=== PATIENT | male | born 1965 | race Caucasian/White ===

== ENCOUNTER 2017-09-01 11:15 | Inpatient (IN) | payer OTHER ==
[~2017-09-01 11:15] MED LIST: Acetaminophen/oxyCODONE 325-5 MG Tab PO PRN; Bisacodyl 5 MG Tab PO PRN; Cyclobenzaprine 10 MG Tab PO PRN; Lidocaine 1%/Sod Bicarbonate in NS 8.4% 1 ML Syringe IV PRN; Magnesium Hydroxide 400 MG/5 ML Susp 30 ML Cup PO PRN; Morphine 2 MG/ML Syringe IVPUSH PRN; Naloxone 0.4 MG/ML SDV IVPUSH PRN; Sennosides 8.6 MG Tab PO PRN; Sodium Chloride 0.9% 10 ML Syringe FLUSH PRN; diphenhydrAMINE 50 MG/ML SDV IVPUSH PRN
[2017-09-01] MEDS: Lactated Ringers 1,000 ML IV SCH ×2 (11:45→16:24)
[2017-09-01] MEDS ORDERED: ceFAZolin 1 GM Vial ONE (11:48)
--- NOTE | 2017-09-01 12:14 | PCM.PREANE ---
Preanesthetic Assessment - Anesthesia/Transfusion/Family Hx Anesthesia History: Prior Anesthesia Without Reaction Family History of Anesthesia Reaction: No Transfusion History: No Prior Transfusion(s) - Review of Systems General: No Symptoms Pulmonary: No Symptoms Cardiovascular: Other (EKG shows nsr with incomplete RBBB) Gastrointestinal: Other (GERD, Barretts Esophagus, well controlled on meds) Neurological: No Symptoms Other: Reports: None - Physical Assessment NPO Status Date: 08/31/17 NPO Status Time: 21:30 Pulse: 76 O2 Sat by Pulse Oximetry: 98 Respiratory Rate: 16 Blood Pressure: 130/93 Vital Signs: Last Vital Signs Temp 36.8 C 09/01/17 11:30 Pulse 76 09/01/17 11:30 Resp 16 09/01/17 11:30 BP 130/93 H 09/01/17 11:30 Pulse Ox 98 09/01/17 11:30 Height: 1.8 m Weight: 93.44 kg ASA Class: 2 Mental Status: Alert & Oriented x3 Airway Class: Mallampati = 2 Dentition: Reports: Normal Dentition Thyro-Mental Finger Breadths: 3 Mouth Opening Finger Breadths: 3 ROM/Head Extension: Full Lungs: Clear to Auscultation, Normal Respiratory Effort Cardiovascular: Regular Rate, Regular Rhythm - Allergies Allergies/Adverse Reactions: Allergies Allergy/AdvReac Type Severity Reaction Status Date / Time cat dander Allergy Sneezing Verified 08/31/17 11:21 - Blood Blood Available: No Product(s) Available: None - Anesthesia Plan Pre-Op Medication Ordered: None - Acknowledgements Anesthesia Type Planned: Spinal Pt an Appropriate Candidate for the Planned Anesthesia: Yes Alternatives and Risks of Anesthesia Discussed w Pt/Guardian: Yes Pt/Guardian Understands and Agrees with Anesthesia Plan: Yes PreAnesthesia Questionnaire HEENT History: Reports: Impaired Vision Other HEENT History: wears eyeglasses Cardiovascular History: Reports: High Cholesterol, Hypertension Other Cardiovascular History: controlled with fish oil Respiratory History: Reports: None Gastrointestinal History: Reports: GERD, Other (See Below) Other Gastrointestinal History: richards's esophagus Genitourinary History: Reports: None 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 Musculoskeletal History: Reports: None Neurological History: Reports: None Psychiatric History: Reports: None Endocrine/Metabolic History: Reports: None Hematologic History: Reports: None Immunologic History: Reports: None Oncologic (Cancer) History: Reports: None Dermatologic History: Reports: Other (See Below) Other Dermatologic History: sebaceous cyst, excision of lymph nodes - Infectious Disease History Infectious Disease History: Reports: Chicken Pox, Measles - Past Surgical History Head Surgeries/Procedures: Reports: None Cardiovascular Surgical History: Reports: None Respiratory Surgical History: Reports: None GI Surgical History: Reports: Appendectomy, Cholecystectomy, Colonoscopy, EGD Female Surgical History: Reports: None Male Surgical History: Reports: None Endocrine Surgical History: Reports: None Neurological Surgical History: Reports: None Musculoskeletal Surgical History: Reports: None Oncologic Surgical History: Reports: None Dermatological Surgical History: Reports: None - SUBSTANCE USE Smoking Status *Q: Former Smoker Second Hand Smoke Exposure: No Days Per Week of Alcohol Use: 0 Number of Drinks Per Day: 1 Total Drinks Per Week: 0 Recreational Drug Use History: No - HOME MEDS Home Medications: Home Meds Omeprazole [priLOSEC OTC] 20 mg PO DAILY 03/18/14 [History] Colestipol HCl 1 gm PO TID PRN 08/31/17 [History] Dicyclomine [Bentyl] 10 mg PO Q48H 08/31/17 [History] Meloxicam [Meloxicam] 15 mg PO DAILY 08/31/17 [History] Pravastatin Sodium [Pravastatin (Pravachol)] 40 mg PO DAILY 08/31/17 [History] - CURRENT (IN HOUSE) MEDS Current Meds: Current Medications Aspirin (Ecotrin) 325 mg PO BID JESUS Bisacodyl (Dulcolax) 5 mg PO DAILY PRN PRN Reason: Constipation Cyclobenzaprine HCl (Flexeril) 10 mg PO TID PRN PRN Reason: Spasms Diphenhydramine HCl (Benadryl) 25 mg IVPUSH Q4H PRN PRN Reason: Nausea Docusate Sodium (Colace) 100 mg PO BID JESUS Famotidine (Pepcid) 20 mg PO Q12H JESUS Lactated Ringer's (Ringers, Lactated) 1,000 mls @ 125 mls/hr IV ASDIRECTED [facility] Stop: 09/01/17 18:00 Last Admin: 09/01/17 11:45 Dose: 125 mls/hr Cefazolin Sodium/Dextrose 2 gm (/ Premix) 50 mls @ 100 mls/hr IV Q8H [facility] Stop: 09/01/17 23:29 Ketorolac Tromethamine (Toradol) 15 mg IVPUSH Q6H PRN PRN Reason: Pain Lidocaine/Sodium Bicarbonate (Buffered Lidocaine 1% In Ns 8.4%) 0.25 ml IV ONETIME PRN PRN Reason: Prior to IV Start Stop: 09/01/17 18:00 Last Admin: 09/01/17 11:44 Dose: 0.25 ml Magnesium Hydroxide (Milk Of Magnesia) 30 ml PO BID PRN PRN Reason: Constipation Morphine Sulfate (Morphine) 2 mg IVPUSH Q2H PRN PRN Reason: Breakthrough Pain Naloxone HCl (Narcan) 0.1 mg IVPUSH Q5M PRN PRN Reason: Oversedation Ondansetron HCl (Zofran) 4 mg IVPUSH Q6H PRN PRN Reason: Nausea/Vomiting Oxycodone/Acetaminophen (Percocet 325-5 Mg) 1 - 2 tab PO Q4H PRN PRN Reason: Pain Senna (Senna) 8.6 mg PO BID PRN PRN Reason: Constipation Sodium Chloride (Saline Flush) 10 ml FLUSH ASDIRECTED PRN PRN Reason: Keep Vein Open Stop: 09/01/17 18:00 Discontinued Medications Bupivacaine HCl (Marcaine 0.25%) Confirm Administered Dose 30 ml .ROUTE .STK- MED ONE Stop: 09/01/17 11:49 Cefazolin Sodium (Ancef) Confirm Administered Dose 2 gm .ROUTE .STK-MED ONE Stop: 09/01/17 11:49 Morphine Sulfate 8 mg/Epinephrine HCl 0.3 mg/Cefuroxime Sodium 750 mg/Ketorolac Tromethamine 30 mg/Sodium Chloride 27.9 ml 0 mg .XX ONETIME ONE Stop: 09/01/17 06:52 Iodine (Iodine 2% Mild Tincture) Confirm Administered Dose 30 ml .ROUTE .STK- MED ONE Stop: 09/01/17 11:49 Tranexamic Acid (Cyklokapron) Confirm Administered Dose 1,000 mg .ROUTE .STK- MED ONE Stop: 09/01/17 11:49 Vancomycin HCl (Vancomycin) Confirm Administered Dose 1 gm .ROUTE .STK-MED ONE Stop: 09/01/17 11:49
[2017-09-01] MEDS ORDERED: Ondansetron 4 MG/2 ML SDV ONE (12:45)
[2017-09-01] MEDS ORDERED: Morphine PF 1 MG/ML Amp ONE (12:45)
[2017-09-01] MEDS ORDERED: Propofol 200 MG/20 ML SDV ONE ×4 (12:46→15:06)
[2017-09-01] MEDS ORDERED: Midazolam 1 MG/ML 2 ML SDV ONE (12:46)
[2017-09-01] MEDS ORDERED: Lidocaine 1% 4 ML ONE (12:46)
[2017-09-01] MEDS ORDERED: fentaNYL 100 MCG/2 ML SDV ONE (12:46)
[2017-09-01] MEDS ORDERED: ePHEDrine/Normal Saline 25 MG/5 ML Syringe ONE (14:05)
[2017-09-01] MEDS: ceFAZolin 1 GM Vial ONE ×2 (14:06→14:50)
[2017-09-01] MEDS: Bupivacaine 0.25% 30 ML SDV ONE ×2 (14:07→14:55)
[2017-09-01] MEDS: Iodine/Sodium Iodide 2% Tincture 30 ML Bottle ONE ×2 (14:08→14:47)
[2017-09-01] MEDS: Morphine 8 MG, EPINEPHrine 0.3 MG, Cefuroxime 750 MG, Ketorolac 30 MG, Sodium Chloride ... ONE ×10 (14:09→14:54)
[2017-09-01] MEDS: Vancomycin 1 GM SDV ONE ×2 (14:10→15:00)
[2017-09-01] MEDS ORDERED: COLESTIPOL HCL 1 GM PO PRN (15:25)
[2017-09-01] MEDS ORDERED: Dicyclomine 10 MG Cap PO SCH (15:30)
[2017-09-01] MEDS ORDERED: fentaNYL 250 MCG/5 ML SDV IVPUSH PRN (15:36)
--- NOTE | 2017-09-01 15:38 | PCM.POSTAN ---
POST ANESTHESIA ASSESSMENT - MENTAL STATUS Mental Status: Alert, Oriented - VITAL SIGNS Pulse Rate: 79 SaO2: 97 Resp Rate: 14 Blood Pressure: 89/58 Temperature: 36.4 C - CARDIOVASCULAR CV Status: Pulse Rate WNL, Blood Pressure Stable - GASTROINTESTINAL GI Status: No Symptoms - PAIN Pain Score: 0 - POST OP HYDRATION Hydration Status: Adequate & Stable - OBSERVATIONS Free Text/Narrative:: no anesthesia complications noted
--- NOTE | 2017-09-01 16:30 | CR ---
Pelvis and right hip: AP view of the pelvis was obtained as well as lateral view of the right hip. Comparison: No prior study. Right hip prosthesis is seen. Small amount of soft tissue air is noted compatible with recent surgery. Joint space within the left hip is maintained. Right sacroiliac and left sacroiliac joints are felt to be within normal limits. No fracture or other bony abnormality is seen. Impression: 1. Satisfactory appearance of recently placed right hip prosthesis. Diagnostic code #2
[2017-09-01] MEDS: Ondansetron 4 MG/2 ML SDV IVPUSH PRN ×2 (17:39→23:12)
--- NOTE | 2017-09-01 20:05 | PCM.CONS ---
H&P History of Present Illness - General Date of Service: 09/01/17 Admit Problem/Dx: Admission Diagnosis/Problem Admission Diagnosis/Problem Osteoarthritis of hip Source of Information: Patient, Old Records, RN, RN Notes Reviewed, Other ( Surgical notes) History Limitations: Reports: No Limitations - History of Present Illness Initial Comments - Free Text/Narative: Matthew Warner is a 52 yo male patient of Dr. Urbina who is post-operative day 0 of right LORENZO. Hospital medicine was consulted for post-operative medical care. At this time he is resting in bed. Pain is absent. He denies any chest pain, shortness of breath, or palpitations. He does report some nausea and vomiting. He carries a history of: Impaired vision, HLD, HTN, GERD, Richards's esophagus. He is a former smoker. He is a full code. Is primary care provider is Dr. Pond at [facility] in [place]. Right Hip Pain Score (Numeric/FACES): 7 - Related Data Allergies/Adverse Reactions: Allergies Allergy/AdvReac Type Severity Reaction Status Date / Time cat dander Allergy Sneezing Verified 08/31/17 11:21 Home Medications: Home Meds Omeprazole [priLOSEC OTC] 20 mg PO DAILY 03/18/14 [History] Colestipol HCl 1 gm PO TID PRN 08/31/17 [History] Dicyclomine [Bentyl] 10 mg PO Q48H 08/31/17 [History] Meloxicam [Meloxicam] 15 mg PO DAILY 08/31/17 [History] Pravastatin Sodium [Pravastatin (Pravachol)] 40 mg PO DAILY 08/31/17 [History] Past Medical History HEENT History: Reports: Impaired Vision Other HEENT History: wears eyeglasses Cardiovascular History: Reports: High Cholesterol, Hypertension Other Cardiovascular History: controlled with fish oil Respiratory History: Reports: None Gastrointestinal History: Reports: GERD, Other (See Below) Other Gastrointestinal History: richards's esophagus Genitourinary History: Reports: None 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 Musculoskeletal History: Reports: None Neurological History: Reports: None Psychiatric History: Reports: None Endocrine/Metabolic History: Reports: None Hematologic History: Reports: None Immunologic History: Reports: None Oncologic (Cancer) History: Reports: None Dermatologic History: Reports: Other (See Below) Other Dermatologic History: sebaceous cyst, excision of lymph nodes - Infectious Disease History Infectious Disease History: Reports: Chicken Pox, Measles - Past Surgical History Head Surgeries/Procedures: Reports: None Cardiovascular Surgical History: Reports: None Respiratory Surgical History: Reports: None GI Surgical History: Reports: Appendectomy, Cholecystectomy, Colonoscopy, EGD Female Surgical History: Reports: None Male Surgical History: Reports: None Endocrine Surgical History: Reports: None Neurological Surgical History: Reports: None Musculoskeletal Surgical History: Reports: None Oncologic Surgical History: Reports: None Dermatological Surgical History: Reports: None Social & Family History - Tobacco Use Smoking Status *Q: Former Smoker Used Tobacco, but Quit: Yes Month Tobacco Last Used: 2012 Second Hand Smoke Exposure: No - Caffeine Use Caffeine Use: Reports: Coffee - Alcohol Use Days Per Week of Alcohol Use: 0 Number of Drinks Per Day: 1 Total Drinks Per Week: 0 - Recreational Drug Use Recreational Drug Use: No Drug Use in Last 12 Months: No H&P Review of Systems - Review of Systems: Review Of Systems: See Below General: Reports: No Symptoms. Denies: Fever, Chills, Malaise, Weakness, Fatigue HEENT: Reports: No Symptoms. Denies: Dysphasia, Ear Pain, Eye Pain, Headaches, Sore Throat, Vertigo Pulmonary: Reports: No Symptoms. Denies: Shortness of Breath, Wheezing, Pleuritic Chest Pain, Cough, Sputum Cardiovascular: Reports: No Symptoms. Denies: Chest Pain, Palpitations, Dyspnea on Exertion, Lightheadedness Gastrointestinal: Reports: Nausea, Vomiting. Denies: Abdominal Pain, Constipation, Diarrhea Genitourinary: Reports: No Symptoms Musculoskeletal: Reports: Joint Pain (Bilateral knee ) Skin: Reports: No Symptoms Psychiatric: Reports: No Symptoms Neurological: Reports: No Symptoms Hematologic/Lymphatic: Reports: No Symptoms Immunologic: Reports: No Symptoms Exam - Exam Exam: See Below - Vital Signs Vital Signs: Last Vital Signs Temp 97.2 F 09/01/17 16:30 Pulse 68 09/01/17 18:46 Resp 14 09/01/17 16:46 BP 121/61 09/01/17 18:46 Pulse Ox 93 L 09/01/17 18:46 Weight: 206 lb - Exam Quality Assessment: Supplemental Oxygen, Urinary Catheter, DVT Prophylaxis General: Alert, Oriented, Cooperative, Mild Distress HEENT: Conjunctiva Clear, EACs Clear, EOMI, Hearing Intact, Mucosa Moist & [place] , Nares Patent, Normal Nasal Septum, Posterior Pharynx Clear, PERRLA Neck: Supple, Trachea Midline. No: JVD, Thyromegaly Lungs: Clear to Auscultation, Normal Respiratory Effort Cardiovascular: Regular Rate, Regular Rhythm GI/Abdominal Exam: Normal Bowel Sounds, Soft, Non-Tender, No Organomegaly, No Distention, No Abnormal Bruit, No Mass, Pelvis Stable (Male) Exam: Deferred Rectal (Males) Exam: Deferred Back Exam: Normal Inspection, Full Range of Motion Extremities: No Pedal Edema, Normal Capillary Refill, Other (CHRISTINA bandage in place on right leg. Bandage is dry and intact. Leg wedge in place. Cooling pack in place ) Peripheral Pulses: 2+: Radial (L), Radial (R), Posterior Tibial (L), Posterior Tibial (R), Dorsalis Pedis (L), Dorsalis Pedis (R) Skin: Warm, Dry, Intact Neurological: Cranial Nerves Intact (Grossly) Neuro Extensive - Mental Status: Alert, Oriented x3, Normal Mood/Affect, Normal Cognition, Memory Intact Neuro Extensive - Motor, Sensory, Reflexes: CN II-XII Intact (Grossly) Psychiatric: Alert, Normal Affect, Normal Mood - Patient Data Lab Results Last 24 hrs: Laboratory Results - last 24 hr 09/01/17 Range/Units 11:45 Blood Type A POSITIVE Gel Antibody Screen Negative Consult PN Assessment/Plan POD#: 0 Procedures: Procedures C DIFF AMPLIFIED PROBE (03/18/14) COLONOSCOPY AND BIOPSY (03/18/14) COMPLETE CBC W/AUTO DIFF WBC (07/24/16) COMPREHEN METABOLIC PANEL (07/24/16) CT ABD & PELV W/CONTRAST (07/24/16) CT THORAX W/DYE (07/24/16) CULTURE OTHR SPECIMN AEROBIC (08/15/17) DRAIN/INJ JOINT/BURSA W/O US (03/04/17) EGD BIOPSY SINGLE/MULTIPLE (03/18/14) EMERGENCY DEPT VISIT (07/24/16) ROUTINE VENIPUNCTURE (07/24/16) TISSUE EXAM BY PATHOLOGIST (03/18/14) URINALYSIS AUTO W/SCOPE (07/24/16) VANOMYCIN DNA AMP PROBE (03/18/14) X-RAY EXAM OF ELBOW (07/24/16) X-RAY EXAM OF WRIST (07/24/16) (1) S/P total hip arthroplasty SNOMED Code(s): 844973442840 Code(s): Z96.649 - PRESENCE OF UNSPECIFIED ARTIFICIAL HIP JOINT Priority: High Current Visit: Yes Qualifiers: Laterality: right Qualified Code(s): Z96.641 - Presence of right artificial hip joint (2) Osteoarthritis SNOMED Code(s): 582834612 Code(s): M19.90 - UNSPECIFIED OSTEOARTHRITIS, UNSPECIFIED SITE Priority: High Current Visit: Yes Qualifiers: Osteoarthritis location: hip Osteoarthritis type: primary Laterality: bilateral Qualified Code(s): M16.0 - Bilateral primary osteoarthritis of hip (3) HLD (hyperlipidemia) SNOMED Code(s): 45773338 Code(s): E78.5 - HYPERLIPIDEMIA, UNSPECIFIED Priority: Low Current Visit : No Qualifiers: Hyperlipidemia type: unspecified Qualified Code(s): E78.5 - Hyperlipidemia , unspecified (4) HTN (hypertension) SNOMED Code(s): 85004389 Code(s): I10 - ESSENTIAL (PRIMARY) HYPERTENSION Priority: Low Current Visit: Yes Qualifiers: Hypertension type: unspecified Qualified Code(s): I10 - Essential (primary ) hypertension (5) GERD (gastroesophageal reflux disease) SNOMED Code(s): 778174936 Code(s): K21.9 - GASTRO-ESOPHAGEAL REFLUX DISEASE WITHOUT ESOPHAGITIS Priority: Low Current Visit: No Qualifiers: Esophagitis presence: with esophagitis Qualified Code(s): K21.0 - Gastro- esophageal reflux disease with esophagitis (6) Post-operative nausea and vomiting SNOMED Code(s): 9845854 Code(s): R11.2 - NAUSEA WITH VOMITING, UNSPECIFIED; Z98.890 - OTHER SPECIFIED POSTPROCEDURAL STATES Priority: High Current Visit: Yes Problem List Initiated/Reviewed/Updated: Yes Plan: I/P: Acute: S/P right total hip arthroplasty - post-operative day 0 -DVT prophylaxis and pain management per primary care team -PT/OT -IS/RT -Monitor oxygen saturation -Titrate oxygen as needed -Vital signs stable Osteoarthritis of bilateral hip -Pain management per primary care team Post-operative nausea and vomiting -Unrelieved with Zofran -Scopolamine patch ordered Chronic: Impaired vision HLD HTN - stable GERD Hx/o Richards's esophagus Plan: SW/CM for discharge planning GI prophylaxis Home medications as indicated Other orders as listed above Routine AM labs He is a full code. His PCP is Dr. Edwards at [facility] here in [place]. Thank you for allowing us to participate in the care of this patient!! Requesting Provider: Dr. Urbina Date Consult Requested: 09/01/17 Reason for Consult: Post-operative medical management Patient History Reviewed: Yes Admission H&P Reviewed: Yes
[2017-09-01] MEDS ORDERED: Scopolamine 1.5 MG Transdermal Patch TOP ONE (20:17)
[2017-09-01] MEDS ORDERED: Remove Patch **SCOPOLAMINE TRDERM SCH (20:30)
[2017-09-01] MEDS: ceFAZolin 2 GM in Premix Bag 1 BAG IV SCH (20:49)
[2017-09-01] MEDS: Ketorolac 15 MG/ML SDV IVPUSH PRN (20:57)
[2017-09-01] MEDS ORDERED: Simvastatin 20 MG Tab PO SCH (21:00)
[2017-09-02] MEDS: Docusate Sodium 100 MG Cap PO SCH ×2 (02:17→09:16)
[2017-09-02] MEDS: Famotidine 20 MG Tab PO SCH ×2 (02:17→09:16)
[2017-09-02] MEDS: ceFAZolin 2 GM in Premix Bag 1 BAG IV SCH ×2 (04:56→11:16)
[2017-09-02] MEDS: Ketorolac 15 MG/ML SDV IVPUSH PRN (04:59)
[2017-09-02] MEDS ORDERED: Pantoprazole 40 MG Tab.CR PO SCH (06:00)
[2017-09-02] MEDS ORDERED: Lactated Ringers 500 ML IV ONE (06:06)
[2017-09-02] MEDS ORDERED: Lactated Ringers 1,000 ML IV ONE (06:52)
--- NOTE | 2017-09-02 07:55 | PCM.CONSN ---
- General Info Date of Service: 09/02/17 Admission Dx/Problem (Free Text): Admission Diagnosis/Problem Admission Diagnosis/Problem Osteoarthritis of hip S/P Rt LORENZO, POD #1 Nursing reports patient was up to the bathroom this morning sitting on the toilet, "trying hard to pee", he states he felt like lightheaded and didn't think he would make it back to bed. He then had a syncopal episode. He was easy to arouse. He was able to then make it back into the bed. Blood pressure at that time was 102/57 he was on 1 L of supplemental oxygen. Nursing reports he's had nausea which is relieved with Zofran. He was vomiting overnight. Orders were placed for 1 L fluid bolus IV. He'll be placed on telemetry for further monitoring. Thus far telemetry is unremarkable with heart rates in the 70s. Patient states now he feels fine. No dizziness lightheadedness, chest pain, shortness of breath, palpitations, coughing. He reports he was vomiting off and on over night and wasn't able to keep much fluid down. She does state this is happened before when he has been vomiting or dehydrated with having a syncopal episode. He really denies any complaints of knee pain states it's very minimal and only painful when he tries to walk or bend it otherwise he is doing very well. He is hopeful for discharge home today. Functional Status: Reports: Pain Controlled, Tolerating Diet, Ambulating, Urinating, Incentive Spirometry - Review of Systems General: Reports: No Symptoms HEENT: Reports: No Symptoms Pulmonary: Reports: No Symptoms. Denies: Shortness of Breath, Cough Cardiovascular: Reports: No Symptoms, Lightheadedness (while in BR on toilet this morning). Denies: Chest Pain, Palpitations, Dyspnea on Exertion Gastrointestinal: Reports: No Symptoms. Denies: Abdominal Pain, Nausea ( resolved), Vomiting (resolved) Genitourinary: Reports: No Symptoms Musculoskeletal: Reports: Leg Pain Skin: Reports: No Symptoms Neurological: Reports: No Symptoms, Syncope (this morning while on toilet), Gait Disturbance. Denies: Confusion, Dizziness, Headache, Numbness, Paresthesia , Tingling, Trouble Speaking, Difficulty Walking Psychiatric: Reports: No Symptoms - Patient Data Vitals - Most Recent: Last Vital Signs Temp 100.0 F 09/02/17 04:26 Pulse 78 09/02/17 04:26 Resp 14 09/02/17 05:38 BP 104/61 09/02/17 05:38 Pulse Ox 94 L 09/02/17 05:38 Weight - Most Recent: 206 lb I&O - Last 24 Hours: Intake & Output 09/01/17 09/02/17 09/02/17 22:59 06:59 14:59 Intake Total 225 1200 Output Total 25 600 Balance 200 600 Lab Results Last 24 Hours: Laboratory Results - last 24 hr 09/01/17 09/02/17 Range/Units 11:45 07:00 WBC 11.07 H (4.23-9.07) K/mm3 RBC 4.05 L (4.63-6.08) M/mm3 Hgb 11.3 L (13.7-17.5) gm/L Hct 35.8 L (40.1-51.0) % MCV 88.4 (79.0-92.2) fl MCH 27.9 (25.7-32.2) pg MCHC 31.6 L (32.2-35.5) g/dl RDW Std Deviation 42.2 (35.1-43.9) fL Plt Count 253 (163-337) K/mm3 MPV 10.6 (9.4-12.3) fl Blood Type A POSITIVE Gel Antibody Screen Negative Med Orders - Current: Current Medications Aspirin (Ecotrin) 325 mg PO BID JESUS Bisacodyl (Dulcolax) 5 mg PO DAILY PRN PRN Reason: Constipation Cyclobenzaprine HCl (Flexeril) 10 mg PO TID PRN PRN Reason: Spasms Dicyclomine HCl (Bentyl) 10 mg PO Q48H [facility] Last Admin: 09/01/17 19:59 Dose: Not Given Diphenhydramine HCl (Benadryl) 25 mg IVPUSH Q4H PRN PRN Reason: Nausea Docusate Sodium (Colace) 100 mg PO BID [facility] Last Admin: 09/02/17 02:17 Dose: Not Given Famotidine (Pepcid) 20 mg PO Q12H [facility] Last Admin: 09/02/17 02:17 Dose: Not Given Cefazolin Sodium/Dextrose 2 gm (/ Premix) 50 mls @ 100 mls/hr IV Q8H [facility] Stop: 09/02/17 12:29 Last Admin: 09/02/17 04:56 Dose: 100 mls/hr Lactated Ringer's (Ringers, Lactated) 1,000 mls @ 500 mls/hr IV .BOLUS ONE Stop: 09/02/17 08:05 Last Admin: 09/02/17 06:55 Dose: Not Given Influenza Virus Vaccine (Flulaval Quad [id number]) 60 mcg IM .ONCE ONE Stop: 09/02/17 10:01 Ketorolac Tromethamine (Toradol) 15 mg IVPUSH Q6H PRN PRN Reason: Pain Last Admin: 09/02/17 04:59 Dose: 15 mg Magnesium Hydroxide (Milk Of Magnesia) 30 ml PO BID PRN PRN Reason: Constipation Miscellaneous Information (Remove Patch) 1 ea TRDERM Q72H [facility] Morphine Sulfate (Morphine) 2 mg IVPUSH Q2H PRN PRN Reason: Breakthrough Pain Naloxone HCl (Narcan) 0.1 mg IVPUSH Q5M PRN PRN Reason: Oversedation Ondansetron HCl (Zofran) 4 mg IVPUSH Q6H PRN PRN Reason: Nausea/Vomiting Last Admin: 09/01/17 23:12 Dose: 4 mg Oxycodone/Acetaminophen (Percocet 325-5 Mg) 1 - 2 tab PO Q4H PRN PRN Reason: Pain Pantoprazole Sodium (Protonix) 40 mg PO ACBRK [facility] Last Admin: 09/02/17 05:01 Dose: 40 mg Colestipol Hcl 1 Gm 0 each PO TID PRN PRN Reason: Diarrhea Senna (Senna) 8.6 mg PO BID PRN PRN Reason: Constipation Simvastatin (Zocor) 20 mg PO BEDTIME [facility] Last Admin: 09/02/17 02:17 Dose: Not Given Discontinued Medications Bupivacaine HCl (Marcaine 0.25%) Confirm Administered Dose 30 ml .ROUTE .STK- MED ONE Stop: 09/01/17 11:49 Last Admin: 09/01/17 14:55 Dose: 30 ml Cefazolin Sodium (Ancef) Confirm Administered Dose 2 gm .ROUTE .STK-MED ONE Stop: 09/01/17 11:49 Cefazolin Sodium (Ancef) Confirm Administered Dose 2 gm .ROUTE .STK-MED ONE Stop: 09/01/17 12:48 Last Admin: 09/01/17 14:50 Dose: 2 gm Morphine Sulfate 8 mg/Epinephrine HCl 0.3 mg/Cefuroxime Sodium 750 mg/Ketorolac Tromethamine 30 mg/Sodium Chloride 27.9 ml 0 mg .XX ONETIME ONE Stop: 09/01/17 06:52 Last Admin: 09/01/17 14:54 Dose: 788.3 mg Ephedrine Sulfate (Ephedrine In Ns) Confirm Administered Dose 25 mg .ROUTE .STK- MED ONE Stop: 09/01/17 14:06 Fentanyl (Sublimaze) Confirm Administered Dose 100 mcg .ROUTE .STK-MED ONE Stop: 09/01/17 12:47 Fentanyl (Sublimaze) 50 mcg IVPUSH Q5M PRN PRN Reason: PAIN Lactated Ringer's (Ringers, Lactated) 1,000 mls @ 125 mls/hr IV ASDIRECTED JESUS Stop: 09/01/17 18:00 Last Admin: 09/01/17 16:24 Dose: 125 mls/hr Lidocaine HCl (Xylocaine-Mpf 1%) Confirm Administered Dose 4 mls @ as directed .ROUTE .STK-MED ONE Stop: 09/01/17 12:47 Lactated Ringer's (Ringers, Lactated) 500 mls @ 500 mls/hr IV .BOLUS ONE Stop: 09/02/17 07:05 Last Admin: 09/02/17 06:17 Dose: 500 mls/hr Influenza Virus Vaccine (Pharmacy To Dose - Influenza Vaccine) 1 each IM ONETIME ONE Stop: 09/02/17 02:05 Iodine (Iodine 2% Mild Tincture) Confirm Administered Dose 30 ml .ROUTE .STK- MED ONE Stop: 09/01/17 11:49 Last Admin: 09/01/17 14:47 Dose: 18 ml Lidocaine/Sodium Bicarbonate (Buffered Lidocaine 1% In Ns 8.4%) 0.25 ml IV ONETIME PRN PRN Reason: Prior to IV Start Stop: 09/01/17 18:00 Last Admin: 09/01/17 11:44 Dose: 0.25 ml Midazolam HCl (Versed 1 Mg/Ml) Confirm Administered Dose 2 mg .ROUTE .STK-MED ONE Stop: 09/01/17 12:47 Miscellaneous Information (Remove Patch) 1 ea TRDERM Q72H [facility] Last Admin: 09/02/17 02:35 Dose: Not Given Morphine Sulfate (Duramorph Pf) Confirm Administered Dose 1 mg .ROUTE .STK-MED ONE Stop: 09/01/17 12:46 Ondansetron HCl (Zofran) Confirm Administered Dose 4 mg .ROUTE .STK-MED ONE Stop: 09/01/17 12:46 Propofol (Diprivan 20 Ml) Confirm Administered Dose 200 mg .ROUTE .STK-MED ONE Stop: 09/01/17 12:47 Propofol (Diprivan 20 Ml) Confirm Administered Dose 200 mg .ROUTE .STK-MED ONE Stop: 09/01/17 13:59 Propofol (Diprivan 20 Ml) Confirm Administered Dose 200 mg .ROUTE .STK-MED ONE Stop: 09/01/17 14:35 Propofol (Diprivan 20 Ml) Confirm Administered Dose 200 mg .ROUTE .STK-MED ONE Stop: 09/01/17 15:07 Scopolamine (Transderm-Scop) 1.5 mg TOP ONETIME ONE Stop: 09/01/17 20:18 Last Admin: 09/01/17 20:54 Dose: 1.5 mg Sodium Chloride (Saline Flush) 10 ml FLUSH ASDIRECTED PRN PRN Reason: Keep Vein Open Stop: 09/01/17 18:00 Tranexamic Acid (Cyklokapron) Confirm Administered Dose 1,000 mg .ROUTE .STK- MED ONE Stop: 09/01/17 11:49 Last Admin: 09/01/17 14:59 Dose: 1,000 mg Vancomycin HCl (Vancomycin) Confirm Administered Dose 1 gm .ROUTE .STK-MED ONE Stop: 09/01/17 11:49 Last Admin: 09/01/17 15:00 Dose: 1 gm - Exam Quality Assessment: DVT Prophylaxis General: Alert, Oriented, Cooperative, No Acute Distress HEENT: Pupils Equal, Pupils Reactive, Mucous Membr. Moist/[place] Neck: Supple Lungs: Clear to Auscultation, Normal Respiratory Effort Cardiovascular: Regular Rate, Regular Rhythm GI/Abdominal Exam: Normal Bowel Sounds, Soft, Non-Tender (Male) Exam: Deferred Extremities: Other (CMS + and = distally BL to LE) Peripheral Pulses: 2+: Dorsalis Pedis (L), Dorsalis Pedis (R) Neurological: No New Focal Deficit, Normal Speech, Normal Tone, Strength Equal Bilateral, Reflexes Equal Bilateral, Sensation Intact, Cranial Nerves Intact Psy/Mental Status: Alert, Normal Affect, Normal Mood Consult PN Assessment/Plan POD#: 1 Procedures: Procedures C DIFF AMPLIFIED PROBE (03/18/14) COLONOSCOPY AND BIOPSY (03/18/14) COMPLETE CBC W/AUTO DIFF WBC (07/24/16) COMPREHEN METABOLIC PANEL (07/24/16) CT ABD & PELV W/CONTRAST (07/24/16) CT THORAX W/DYE (07/24/16) CULTURE OTHR SPECIMN AEROBIC (08/15/17) DRAIN/INJ JOINT/BURSA W/O US (03/04/17) EGD BIOPSY SINGLE/MULTIPLE (03/18/14) EMERGENCY DEPT VISIT (07/24/16) ROUTINE VENIPUNCTURE (07/24/16) TISSUE EXAM BY PATHOLOGIST (03/18/14) URINALYSIS AUTO W/SCOPE (07/24/16) VANOMYCIN DNA AMP PROBE (03/18/14) X-RAY EXAM OF ELBOW (07/24/16) X-RAY EXAM OF WRIST (07/24/16) (1) S/P total hip arthroplasty SNOMED Code(s): 088430784376 Code(s): Z96.649 - PRESENCE OF UNSPECIFIED ARTIFICIAL HIP JOINT Priority: High Current Visit: Yes Qualifiers: Laterality: right Qualified Code(s): Z96.641 - Presence of right artificial hip joint (2) Osteoarthritis SNOMED Code(s): 817725722 Code(s): M19.90 - UNSPECIFIED OSTEOARTHRITIS, UNSPECIFIED SITE Priority: High Current Visit: Yes Qualifiers: Osteoarthritis location: hip Osteoarthritis type: primary Laterality: bilateral Qualified Code(s): M16.0 - Bilateral primary osteoarthritis of hip (3) Syncope SNOMED Code(s): 291962562 Code(s): R55 - SYNCOPE AND COLLAPSE Priority: High Current Visit: Yes Qualifiers: Syncope type: vasovagal syncope Qualified Code(s): R55 - Syncope and collapse (4) Post-operative nausea and vomiting SNOMED Code(s): 4992630 Code(s): R11.2 - NAUSEA WITH VOMITING, UNSPECIFIED; Z98.890 - OTHER SPECIFIED POSTPROCEDURAL STATES Priority: High Current Visit: Yes (5) HTN (hypertension) SNOMED Code(s): 22618383 Code(s): I10 - ESSENTIAL (PRIMARY) HYPERTENSION Priority: Medium Current Visit: Yes Qualifiers: Hypertension type: unspecified Qualified Code(s): I10 - Essential (primary ) hypertension (6) GERD (gastroesophageal reflux disease) SNOMED Code(s): 131018162 Code(s): K21.9 - GASTRO-ESOPHAGEAL REFLUX DISEASE WITHOUT ESOPHAGITIS Priority: Low Current Visit: No Qualifiers: Esophagitis presence: with esophagitis Qualified Code(s): K21.0 - Gastro- esophageal reflux disease with esophagitis (7) HLD (hyperlipidemia) SNOMED Code(s): 59845850 Code(s): E78.5 - HYPERLIPIDEMIA, UNSPECIFIED Priority: Low Current Visit : No Qualifiers: Hyperlipidemia type: unspecified Qualified Code(s): E78.5 - Hyperlipidemia , unspecified Problem List Initiated/Reviewed/Updated: Yes My Orders Last 24 Hours: My Active Orders 09/02/17 06:00 Patient Status [ADT] Routine 09/02/17 06:52 Lactated Ringers [Ringers, Lactated] 1,000 ml IV .BOLUS Plan: I/P: S/P total hip arthroplasty, POD # 1, Dr. Urbina - Pain management and DVT prophylax - PT/OT - RT/IS - Hgb 11.3 Postoperative nausea and vomiting- improved to resolved this morning -Zofran, scopolamine patch Syncopal episode this morning -Suspect this was vasovagal in nature, blood pressure was 102/57 post syncopal episode. He is feeling much better, no dizziness lightheadedness chest pain palpitations shortness of breath. -Continued to monitor closely on telemetry -1 L fluid bolus was given IV Chronic conditions: Continue home meds. Hypertension--stable Hyperlipidemia GERD Other: GI Prophylax CM/SW for DC planning--If he does well when up with therapy with no further dizziness lightheadedness near syncope or syncopal episodes, blood pressure maintains he will be okay for discharge home today from hospitalist standpoint. Patient is full Code status. PCP is Dr. Pond with [facility] here in [place].
[2017-09-02] MEDS: Ondansetron 4 MG/2 ML SDV IVPUSH PRN (07:58)
[2017-09-02] MEDS ORDERED: Aspirin 325 MG Tab.EC PO SCH (09:00)
[2017-09-02] MEDS ORDERED: Tamsulosin 0.4 MG Cap.ER PO ONE (09:48)
[2017-09-02] MEDS ORDERED: FLU Vacc QS 2017-18 (6mos UP)/PF 60 MCG/0.5 ML Syringe IM ONE (10:00)
[2017-09-02 12:27] VITALS: BP 102/70
--- NOTE | 2017-09-02 14:49 | PCM.SURGPN ---
- General Info Date of Service: 09/02/17 POD#: 1 Functional Status: Reports: Pain Controlled, Tolerating Diet, Ambulating, Urinating, Incentive Spirometry - Review of Systems Musculoskeletal: Reports: Other (The pt reports his pain is tolerable.) - Patient Data Vitals - Most Recent: Last Vital Signs Temp 98.4 F 09/02/17 12:22 Pulse 84 09/02/17 12:22 Resp 17 09/02/17 12:22 BP 102/70 09/02/17 12:22 Pulse Ox 95 09/02/17 12:22 Weight - Most Recent: 206 lb I&O - Last 24 Hours: Intake & Output 09/01/17 09/02/17 09/02/17 22:59 06:59 14:59 Intake Total 465 1200 120 Output Total 25 600 Balance 440 600 120 Lab Results Last 24 Hrs: Laboratory Results - last 24 hr 09/02/17 09/02/17 Range/Units 07:00 07:00 WBC 11.07 H (4.23-9.07) K/mm3 RBC 4.05 L (4.63-6.08) M/mm3 Hgb 11.3 L (13.7-17.5) gm/L Hct 35.8 L (40.1-51.0) % MCV 88.4 (79.0-92.2) fl MCH 27.9 (25.7-32.2) pg MCHC 31.6 L (32.2-35.5) g/dl RDW Std Deviation 42.2 (35.1-43.9) fL Plt Count 253 (163-337) K/mm3 MPV 10.6 (9.4-12.3) fl Sodium 138 (136-145) mEq/L Potassium 4.0 (3.5-5.1) mEq/L Chloride 103 (98-107) mEq/L Carbon Dioxide 29 (21-32) mEq/L Anion Gap 10.0 (5-15) BUN 22 H (7-18) mg/dL Creatinine 1.2 (0.7-1.3) mg/dL Est Cr Clr Drug Dosing 74.95 mL/min Estimated GFR (MDRD) > 60 (>60) mL/min BUN/Creatinine Ratio 18.3 H (14-18) Glucose 137 H (74-106) mg/dL Calcium 8.5 (8.5-10.1) mg/dL Total Bilirubin 0.5 (0.2-1.0) mg/dL AST 28 (15-37) U/L ALT 22 (16-63) U/L Alkaline Phosphatase 59 (46-116) U/L Total Protein 6.7 (6.4-8.2) g/dl Albumin 3.0 L (3.4-5.0) g/dl Globulin 3.7 gm/dL Albumin/Globulin Ratio 0.8 L (1-2) Med Orders - Current: Current Medications Aspirin (Ecotrin) 325 mg PO BID [facility] Last Admin: 09/02/17 09:15 Dose: 325 mg Bisacodyl (Dulcolax) 5 mg PO DAILY PRN PRN Reason: Constipation Cyclobenzaprine HCl (Flexeril) 10 mg PO TID PRN PRN Reason: Spasms Dicyclomine HCl (Bentyl) 10 mg PO Q48H [facility] Last Admin: 09/01/17 19:59 Dose: Not Given Diphenhydramine HCl (Benadryl) 25 mg IVPUSH Q4H PRN PRN Reason: Nausea Docusate Sodium (Colace) 100 mg PO BID [facility] [place] Last Admin: 09/02/17 09:16 Dose: 100 mg Ketorolac Tromethamine (Toradol) 15 mg IVPUSH Q6H PRN PRN Reason: Pain Last Admin: 09/02/17 04:59 Dose: 15 mg Magnesium Hydroxide (Milk Of Magnesia) 30 ml PO BID PRN PRN Reason: Constipation Miscellaneous Information (Remove Patch) 1 ea TRDERM Q72H [facility] [place] Morphine Sulfate (Morphine) 2 mg IVPUSH Q2H PRN PRN Reason: Breakthrough Pain Naloxone HCl (Narcan) 0.1 mg IVPUSH Q5M PRN PRN Reason: Oversedation Ondansetron HCl (Zofran) 4 mg IVPUSH Q6H PRN PRN Reason: Nausea/Vomiting Last Admin: 09/02/17 07:58 Dose: 4 mg Oxycodone/Acetaminophen (Percocet 325-5 Mg) 1 - 2 tab PO Q4H PRN PRN Reason: Pain Pantoprazole Sodium (Protonix) 40 mg PO ACBRK [facility] [place] Last Admin: 09/02/17 05:01 Dose: 40 mg Colestipol Hcl 1 Gm 0 each PO TID PRN PRN Reason: Diarrhea Senna (Senna) 8.6 mg PO BID PRN PRN Reason: Constipation Simvastatin (Zocor) 20 mg PO BEDTIME [facility] [place] Last Admin: 09/02/17 02:17 Dose: Not Given Discontinued Medications Bupivacaine HCl (Marcaine 0.25%) Confirm Administered Dose 30 ml .ROUTE .STK- MED ONE Stop: 09/01/17 11:49 Last Admin: 09/01/17 14:55 Dose: 30 ml Cefazolin Sodium (Ancef) Confirm Administered Dose 2 gm .ROUTE .STK-MED ONE Stop: 09/01/17 11:49 Cefazolin Sodium (Ancef) Confirm Administered Dose 2 gm .ROUTE .STK-MED ONE Stop: 09/01/17 12:48 Last Admin: 09/01/17 14:50 Dose: 2 gm Morphine Sulfate 8 mg/Epinephrine HCl 0.3 mg/Cefuroxime Sodium 750 mg/Ketorolac Tromethamine 30 mg/Sodium Chloride 27.9 ml 0 mg .XX ONETIME ONE Stop: 09/01/17 06:52 Last Admin: 09/01/17 14:54 Dose: 788.3 mg Ephedrine Sulfate (Ephedrine In Ns) Confirm Administered Dose 25 mg .ROUTE .STK- MED ONE Stop: 09/01/17 14:06 Famotidine (Pepcid) 20 mg PO Q12H [facility] Last Admin: 09/02/17 09:16 Dose: 20 mg Fentanyl (Sublimaze) Confirm Administered Dose 100 mcg .ROUTE .STK-MED ONE Stop: 09/01/17 12:47 Fentanyl (Sublimaze) 50 mcg IVPUSH Q5M PRN PRN Reason: PAIN Lactated Ringer's (Ringers, Lactated) 1,000 mls @ 125 mls/hr IV ASDIRECTED [facility] Stop: 09/01/17 18:00 Last Admin: 09/01/17 16:24 Dose: 125 mls/hr Cefazolin Sodium/Dextrose 2 gm (/ Premix) 50 mls @ 100 mls/hr IV Q8H [facility] [place] Stop: 09/02/17 12:29 Last Admin: 09/02/17 11:16 Dose: 100 mls/hr Lidocaine HCl (Xylocaine-Mpf 1%) Confirm Administered Dose 4 mls @ as directed .ROUTE .STK-MED ONE Stop: 09/01/17 12:47 Lactated Ringer's (Ringers, Lactated) 500 mls @ 500 mls/hr IV .BOLUS ONE Stop: 09/02/17 07:05 Last Admin: 09/02/17 06:17 Dose: 500 mls/hr Lactated Ringer's (Ringers, Lactated) 1,000 mls @ 500 mls/hr IV .BOLUS ONE Stop: 09/02/17 08:05 Last Admin: 09/02/17 06:55 Dose: Not Given Influenza Virus Vaccine (Pharmacy To Dose - Influenza Vaccine) 1 each IM ONETIME ONE Stop: 09/02/17 02:05 Influenza Virus Vaccine (Flulaval Quad [id number]) 60 mcg IM .ONCE ONE Stop: 09/02/17 10:01 Iodine (Iodine 2% Mild Tincture) Confirm Administered Dose 30 ml .ROUTE .STK- MED ONE Stop: 09/01/17 11:49 Last Admin: 09/01/17 14:47 Dose: 18 ml Lidocaine/Sodium Bicarbonate (Buffered Lidocaine 1% In Ns 8.4%) 0.25 ml IV ONETIME PRN PRN Reason: Prior to IV Start Stop: 09/01/17 18:00 Last Admin: 09/01/17 11:44 Dose: 0.25 ml Midazolam HCl (Versed 1 Mg/Ml) Confirm Administered Dose 2 mg .ROUTE .STK-MED ONE Stop: 09/01/17 12:47 Miscellaneous Information (Remove Patch) 1 ea TRDERM Q72H [facility] Last Admin: 09/02/17 02:35 Dose: Not Given Morphine Sulfate (Duramorph Pf) Confirm Administered Dose 1 mg .ROUTE .STK-MED ONE Stop: 09/01/17 12:46 Ondansetron HCl (Zofran) Confirm Administered Dose 4 mg .ROUTE .STK-MED ONE Stop: 09/01/17 12:46 Propofol (Diprivan 20 Ml) Confirm Administered Dose 200 mg .ROUTE .STK-MED ONE Stop: 09/01/17 12:47 Propofol (Diprivan 20 Ml) Confirm Administered Dose 200 mg .ROUTE .STK-MED ONE Stop: 09/01/17 13:59 Propofol (Diprivan 20 Ml) Confirm Administered Dose 200 mg .ROUTE .STK-MED ONE Stop: 09/01/17 14:35 Propofol (Diprivan 20 Ml) Confirm Administered Dose 200 mg .ROUTE .STK-MED ONE Stop: 09/01/17 15:07 Scopolamine (Transderm-Scop) 1.5 mg TOP ONETIME ONE Stop: 09/01/17 20:18 Last Admin: 09/01/17 20:54 Dose: 1.5 mg Sodium Chloride (Saline Flush) 10 ml FLUSH ASDIRECTED PRN PRN Reason: Keep Vein Open Stop: 09/01/17 18:00 Tamsulosin HCl (Flomax) 0.4 mg PO ONETIME ONE Stop: 09/02/17 09:49 Last Admin: 09/02/17 10:11 Dose: 0.4 mg Tranexamic Acid (Cyklokapron) Confirm Administered Dose 1,000 mg .ROUTE .STK- MED ONE Stop: 09/01/17 11:49 Last Admin: 09/01/17 14:59 Dose: 1,000 mg Vancomycin HCl (Vancomycin) Confirm Administered Dose 1 gm .ROUTE .STK-MED ONE Stop: 09/01/17 11:49 Last Admin: 09/01/17 15:00 Dose: 1 gm - Exam Wound/Incisions: Dressing Dry and Intact General: Alert, Cooperative, No Acute Distress Lungs: Normal Respiratory Effort Extremities: Other (Right thigh soft. NVS intact for BLE. Jerzy's negative.) - Problem List Review Problem List Initiated/Reviewed/Updated: Yes - My Orders Last 24 Hours: Active Orders 24 hr Category Date Time Status Patient Status [ADT] Routine ADT 09/02/17 06:00 Active Notify Provider [RC] ASDIRECTED Care 09/01/17 15:36 Active Pulse Oximetry [RC] ASDIRECTED Care 09/01/17 15:35 Active Ready for Discharge [RC] PER UNIT ROUTINE Care 09/02/17 12:45 Active Regular Diet [DIET] Diet 09/01/17 Dinner Active Aspirin [Ecotrin] Med 09/02/17 09:00 Active 325 mg PO BID Dicyclomine [Bentyl] Med 09/01/17 15:30 Active 10 mg PO Q48H Docusate Sodium [Colace] Med 09/01/17 21:00 Active 100 mg PO BID Pantoprazole [ProTONIX] Med 09/02/17 06:00 Active 40 mg PO ACBRK Patient's Own Medication [Ptom] Med 09/01/17 15:25 Active 0 each PO TID PRN Remove Patch Med 09/03/17 21:00 Active 1 ea TRDERM Q72H Simvastatin [Zocor] Med 09/01/17 21:00 Active 20 mg PO BEDTIME Hip Precautions Posterior [OM.PC] Routine Oth 09/01/17 17:01 Ordered Weight bearing status [OM.PC] Routine Oth 09/01/17 17:01 Ordered Medication Orders Aspirin (Ecotrin) 325 mg PO BID [facility] Last Admin: 09/02/17 09:15 Dose: 325 mg Bisacodyl (Dulcolax) 5 mg PO DAILY PRN PRN Reason: Constipation Cyclobenzaprine HCl (Flexeril) 10 mg PO TID PRN PRN Reason: Spasms Dicyclomine HCl (Bentyl) 10 mg PO Q48H [facility] Last Admin: 09/01/17 19:59 Dose: Diphenhydramine HCl (Benadryl) 25 mg IVPUSH Q4H PRN PRN Reason: Nausea Docusate Sodium (Colace) 100 mg PO BID [facility] Last Admin: 09/02/17 09:16 Dose: 100 mg Admin: 09/02/17 02:17 Dose: Ketorolac Tromethamine (Toradol) 15 mg IVPUSH Q6H PRN PRN Reason: Pain Last Admin: 09/02/17 04:59 Dose: 15 mg Admin: 09/01/17 20:57 Dose: 15 mg Magnesium Hydroxide (Milk Of Magnesia) 30 ml PO BID PRN PRN Reason: Constipation Miscellaneous Information (Remove Patch) 1 ea TRDERM Q72H [facility] Morphine Sulfate (Morphine) 2 mg IVPUSH Q2H PRN PRN Reason: Breakthrough Pain Naloxone HCl (Narcan) 0.1 mg IVPUSH Q5M PRN PRN Reason: Oversedation Ondansetron HCl (Zofran) 4 mg IVPUSH Q6H PRN PRN Reason: Nausea/Vomiting Last Admin: 09/02/17 07:58 Dose: 4 mg Admin: 09/01/17 23:12 Dose: 4 mg Admin: 09/01/17 17:39 Dose: 4 mg Oxycodone/Acetaminophen (Percocet 325-5 Mg) 1 - 2 tab PO Q4H PRN PRN Reason: Pain Pantoprazole Sodium (Protonix) 40 mg PO ACBRK [facility] Last Admin: 09/02/17 05:01 Dose: 40 mg Colestipol Hcl 1 Gm 0 each PO TID PRN PRN Reason: Diarrhea Senna (Senna) 8.6 mg PO BID PRN PRN Reason: Constipation Simvastatin (Zocor) 20 mg PO BEDTIME [facility] Last Admin: 09/02/17 02:17 Dose: - Assessment Assessment (Free Text/Narrative):: POD#1 - right LORENZO - Plan Plan (Free Text/Narrative):: 1. Hgb 11.3. 2. LORENZO precautions. 3. 325mg ASA BID. Frequent mobility and TEDs. 4. Discharge to home today. The pt's case was discussed with Dr. Urbina today.
[2017-09-03] MEDS ORDERED: Remove Patch **SCOPOLAMINE TRDERM SCH (21:00)
--- NOTE | 2017-09-05 15:46 | PCM.DCSUM1 ---
Discharge Summary - Hospital Course Brief History: Matthew is a 52 yo male who underwent right LORENZO with Dr. Urbina on . The procedure was completed under spinal anesthesia. The pt tolerated the procedure well and was admitted to the Medical-Surgical Unit. Medical management was provided by the Hospitalist service. The pt's Hospital course was remarkable for a syncopal episode that was thoroughly evaluated by the Hospitalist service. The pt's Hgb on POD#1 was 11.3. On POD#1, 325mg ASA BID was initiated for VTE prophylaxis. SCDs and TEDs were also ordered. A Mepilex dressing was placed at the incision site at the time of surgery and remained clean and dry. The pt participated in P.T. and O.T. and progressed well. He followed the LORENZO precautions. The pt was allowed to WBAT. On POD#1, the pt was deemed appropriate to discharge to home with his . - Discharge Data Discharge Date: 09/02/17 Discharge Disposition: Home, Self-Care 01 Condition: Good - Patient Summary/Data Consults: Consultations 09/01/17 06:51 Consult to Physician [CONS] Routine OT Evaluation and Treatment [CONS] Routine 09/01/17 06:55 PT Evaluation and Treatment [CONS] Routine - Patient Instructions Diet: Usual Diet as Tolerated Activity: Apply Ice, As Tolerated, Elevate Extremity, Full Weight Bearing Driving: Do Not Drive Showering/Bathing: May Shower Wound/Incision Care: Keep Operative Site/Wound Site Clean and Dry, Do NOT Change Dressing Notify Provider of: Fever, Increased Pain, Swelling and Redness, Drainage, Nausea and/or Vomiting Other/Special Instructions: Please get up and moving around every hour while awake. This helps to prevent blood clots. Please use your walker and have help as needed. Take a 325mg ASPIRIN TWICE DAILY. This also helps to prevent blood clots. The aspirin is being used for blood clot prevention and not for pain management, so please do not miss a dose of the medication. Do the exercises you were taught in the Hospital. Schedule for P.T. Use the pain medication as needed. The medication may cause drowsiness and constipation. Contact your primary care provider for instructions if you are constipated. You may use a stool softener like docusate sodium or Colace 100mg twice daily and/or a laxative like Miralax daily for constipation. Use the ice machine often. Elevate the limb to decrease swelling. Keep the Mepilex dressing in place until follow-up at the Clinic. Notify the Clinic if the dressing is saturated. Wear the ROMMEL hose during the day and you may remove these at night. Eat a diet high in protein as this well help with healing. Schedule an appointment with your primary care provider for 'routine post-op care'. Call the Clinic with questions or concerns - [phone]. - Discharge Plan Prescriptions/Med Rec: Aspirin [Ecotrin] 325 mg PO BID #70 tab.ec Cyclobenzaprine [Flexeril] 10 mg PO TID PRN #40 tablet PRN Reason: Spasms oxyCODONE HCl/Acetaminophen [Percocet 5-325 mg Tablet] 1 - 2 each PO Q6H PRN # 60 tablet PRN Reason: Pain Home Medications: Home Meds Omeprazole [priLOSEC OTC] 20 mg PO DAILY 03/18/14 [History] Colestipol HCl 1 gm PO TID PRN 08/31/17 [History] Dicyclomine [Bentyl] 10 mg PO Q48H 08/31/17 [History] Pravastatin Sodium [Pravastatin (Pravachol)] 40 mg PO DAILY 08/31/17 [History] Aspirin [Ecotrin] 325 mg PO BID #70 tab.ec 09/02/17 [Rx] Cyclobenzaprine [Flexeril] 10 mg PO TID PRN #40 tablet 09/02/17 [Rx] Docusate Sodium [Colace] 100 mg PO BID cap 09/02/17 [Rx] Famotidine [Pepcid] 20 mg PO Q12H tablet 09/02/17 [Rx] oxyCODONE HCl/Acetaminophen [Percocet 5-325 mg Tablet] 1 - 2 each PO Q6H PRN # 60 tablet 09/02/17 [Rx] Patient Handouts: Total Hip Replacement, [id number], Total Hip Replacement, Care After, [id number] Referrals: Harmony Singer PA-C [Physician Handkerchief Presser] - 09/09/17 9:15 am (Please follow up with Harmony Singer on 09/09/17 at 9:15AM) - Patient Data Vitals - Most Recent: Last Vital Signs Temp 98.4 F 09/02/17 12:22 Pulse 84 09/02/17 12:22 Resp 17 09/02/17 12:22 BP 102/70 09/02/17 12:22 Pulse Ox 95 09/02/17 12:22 Weight - Most Recent: 206 lb Med Orders - Current: Current Medications Discontinued Medications Aspirin (Ecotrin) 325 mg PO BID [facility] Last Admin: 09/02/17 09:15 Dose: 325 mg Bisacodyl (Dulcolax) 5 mg PO DAILY PRN PRN Reason: Constipation Bupivacaine HCl (Marcaine 0.25%) Confirm Administered Dose 30 ml .ROUTE .STK- MED ONE Stop: 09/01/17 11:49 Last Admin: 09/01/17 14:55 Dose: 30 ml Cefazolin Sodium (Ancef) Confirm Administered Dose 2 gm .ROUTE .STK-MED ONE Stop: 09/01/17 11:49 Cefazolin Sodium (Ancef) Confirm Administered Dose 2 gm .ROUTE .STK-MED ONE Stop: 09/01/17 12:48 Last Admin: 09/01/17 14:50 Dose: 2 gm Morphine Sulfate 8 mg/Epinephrine HCl 0.3 mg/Cefuroxime Sodium 750 mg/Ketorolac Tromethamine 30 mg/Sodium Chloride 27.9 ml 0 mg .XX ONETIME ONE Stop: 09/01/17 06:52 Last Admin: 09/01/17 14:54 Dose: 788.3 mg Cyclobenzaprine HCl (Flexeril) 10 mg PO TID PRN PRN Reason: Spasms Dicyclomine HCl (Bentyl) 10 mg PO Q48H [facility] Last Admin: 09/01/17 19:59 Dose: Not Given Diphenhydramine HCl (Benadryl) 25 mg IVPUSH Q4H PRN PRN Reason: Nausea Docusate Sodium (Colace) 100 mg PO BID [facility] Last Admin: 09/02/17 09:16 Dose: 100 mg Ephedrine Sulfate (Ephedrine In Ns) Confirm Administered Dose 25 mg .ROUTE .STK- MED ONE Stop: 09/01/17 14:06 Famotidine (Pepcid) 20 mg PO Q12H [facility] Last Admin: 09/02/17 09:16 Dose: 20 mg Fentanyl (Sublimaze) Confirm Administered Dose 100 mcg .ROUTE .STK-MED ONE Stop: 09/01/17 12:47 Fentanyl (Sublimaze) 50 mcg IVPUSH Q5M PRN PRN Reason: PAIN Lactated Ringer's (Ringers, Lactated) 1,000 mls @ 125 mls/hr IV ASDIRECTED JESUS Stop: 09/01/17 18:00 Last Admin: 09/01/17 16:24 Dose: 125 mls/hr Cefazolin Sodium/Dextrose 2 gm (/ Premix) 50 mls @ 100 mls/hr IV Q8H [facility] Stop: 09/02/17 12:29 Last Admin: 09/02/17 11:16 Dose: 100 mls/hr Lidocaine HCl (Xylocaine-Mpf 1%) Confirm Administered Dose 4 mls @ as directed .ROUTE .STK-MED ONE Stop: 09/01/17 12:47 Lactated Ringer's (Ringers, Lactated) 500 mls @ 500 mls/hr IV .BOLUS ONE Stop: 09/02/17 07:05 Last Admin: 09/02/17 06:17 Dose: 500 mls/hr Lactated Ringer's (Ringers, Lactated) 1,000 mls @ 500 mls/hr IV .BOLUS ONE Stop: 09/02/17 08:05 Last Admin: 09/02/17 06:55 Dose: Not Given Influenza Virus Vaccine (Pharmacy To Dose - Influenza Vaccine) 1 each IM ONETIME ONE Stop: 09/02/17 02:05 Influenza Virus Vaccine (Flulaval Quad [id number]) 60 mcg IM .ONCE ONE Stop: 09/02/17 10:01 Iodine (Iodine 2% Mild Tincture) Confirm Administered Dose 30 ml .ROUTE .STK- MED ONE Stop: 09/01/17 11:49 Last Admin: 09/01/17 14:47 Dose: 18 ml Ketorolac Tromethamine (Toradol) 15 mg IVPUSH Q6H PRN PRN Reason: Pain Last Admin: 09/02/17 04:59 Dose: 15 mg Lidocaine/Sodium Bicarbonate (Buffered Lidocaine 1% In Ns 8.4%) 0.25 ml IV ONETIME PRN PRN Reason: Prior to IV Start Stop: 09/01/17 18:00 Last Admin: 09/01/17 11:44 Dose: 0.25 ml Magnesium Hydroxide (Milk Of Magnesia) 30 ml PO BID PRN PRN Reason: Constipation Midazolam HCl (Versed 1 Mg/Ml) Confirm Administered Dose 2 mg .ROUTE .STK-MED ONE Stop: 09/01/17 12:47 Miscellaneous Information (Remove Patch) 1 ea TRDERM Q72H [facility] Last Admin: 09/02/17 02:35 Dose: Not Given Miscellaneous Information (Remove Patch) 1 ea TRDERM Q72H JESUS Morphine Sulfate (Morphine) 2 mg IVPUSH Q2H PRN PRN Reason: Breakthrough Pain Morphine Sulfate (Duramorph Pf) Confirm Administered Dose 1 mg .ROUTE .STK-MED ONE Stop: 09/01/17 12:46 Naloxone HCl (Narcan) 0.1 mg IVPUSH Q5M PRN PRN Reason: Oversedation Ondansetron HCl (Zofran) 4 mg IVPUSH Q6H PRN PRN Reason: Nausea/Vomiting Last Admin: 09/02/17 07:58 Dose: 4 mg Ondansetron HCl (Zofran) Confirm Administered Dose 4 mg .ROUTE .STK-MED ONE Stop: 09/01/17 12:46 Oxycodone/Acetaminophen (Percocet 325-5 Mg) 1 - 2 tab PO Q4H PRN PRN Reason: Pain Pantoprazole Sodium (Protonix) 40 mg PO [facility] Last Admin: 09/02/17 05:01 Dose: 40 mg Colestipol Hcl 1 Gm 0 each PO TID PRN PRN Reason: Diarrhea Propofol (Diprivan 20 Ml) Confirm Administered Dose 200 mg .ROUTE .STK-MED ONE Stop: 09/01/17 12:47 Propofol (Diprivan 20 Ml) Confirm Administered Dose 200 mg .ROUTE .STK-MED ONE Stop: 09/01/17 13:59 Propofol (Diprivan 20 Ml) Confirm Administered Dose 200 mg .ROUTE .STK-MED ONE Stop: 09/01/17 14:35 Propofol (Diprivan 20 Ml) Confirm Administered Dose 200 mg .ROUTE .STK-MED ONE Stop: 09/01/17 15:07 Scopolamine (Transderm-Scop) 1.5 mg TOP ONETIME ONE Stop: 09/01/17 20:18 Last Admin: 09/01/17 20:54 Dose: 1.5 mg Senna (Senna) 8.6 mg PO BID PRN PRN Reason: Constipation Simvastatin (Zocor) 20 mg PO BEDTIME JESUS Last Admin: 09/02/17 02:17 Dose: Not Given Sodium Chloride (Saline Flush) 10 ml FLUSH ASDIRECTED PRN PRN Reason: Keep Vein Open Stop: 09/01/17 18:00 Tamsulosin HCl (Flomax) 0.4 mg PO ONETIME ONE Stop: 09/02/17 09:49 Last Admin: 09/02/17 10:11 Dose: 0.4 mg Tranexamic Acid (Cyklokapron) Confirm Administered Dose 1,000 mg .ROUTE .STK- MED ONE Stop: 09/01/17 11:49 Last Admin: 09/01/17 14:59 Dose: 1,000 mg Vancomycin HCl (Vancomycin) Confirm Administered Dose 1 gm .ROUTE .STK-MED ONE Stop: 09/01/17 11:49 Last Admin: 09/01/17 15:00 Dose: 1 gm *Q Meaningful Use (DIS) - VTE *Q VTE Criteria *Q: - Stroke *Q Stroke Criteria *Q: - AMI *Q AMI Criteria *Q:
--- NOTE | 2017-09-08 07:35 | PCM.OPNOTE ---
- General Post-Op/Procedure Note Date of Surgery/Procedure: 09/01/17 Operative Procedure(s): right total hip arthroplasty Pre Op Diagnosis: right hip osteoarthrosis Post-Op Diagnosis: Same Anesthesia Technique: Local, MAC, Spinal Primary Surgeon: Gopal Urbina Anesthesia Provider: Arsenio May Timber Skidder: Harmony Singer Timber Skidder: Julia Huffman EBBonnie in mLs: 400 Complications: None Condition: Good
--- NOTE | 2017-09-08 15:22 | OR ---
DATE OF OPERATION: 09/01/2017 SURGEON: Gopal Urbina MD OPERATION PERFORMED: Right total hip arthroplasty. PREOPERATIVE DIAGNOSIS: Right hip osteoarthrosis. POSTOPERATIVE DIAGNOSIS: Right hip osteoarthrosis. ANESTHESIA: Local MAC with spinal. ANESTHESIA PROVIDER: Arsenio May CRNA. ASSISTANTS: Harmony Singer PA-C and Julia Huffman LPN. ESTIMATED BLOOD LOSS: 400 mL. COMPLICATIONS: None. CONDITION: Stable. IMPLANTS: 1. Sathish 56 mm Tritanium solid acetabular shell. 2. 36 mm 10-degree elevated acetabular liner. 3. Sathish size 6 Accolade II stem. DESCRIPTION OF PROCEDURE: The patient was identified in the preop holding area. Proper site was marked and identified by the surgeon. The patient was taken back to the operating theater, where after adequate anesthesia, the patient was placed in a - lateral decubitus position. Axillary wedge was placed as well as pegs and they were well padded. The patient's gluteal fold was parallel to the floor. Right hip was then sterilely prepped and draped in the usual sterile fashion. OR-wide time-out was performed. The patient received 2 grams IV Ancef. Standard posterior incision was made down to the IT band and gluteal fascia, which was incised along the incisional lengths. Short external rotators were identified. Gluteus medius and minimus were retracted and protected and takedown of the short external rotators was done down to the level of the lesser trochanter. At this time, the hip was dislocated. Neck cut guide was placed, and the neck cut was completed. It was found to be an adequate resection. Anterior and posterior acetabular retractors were placed. The labrum was then removed along with pulvinar. Starting with a 48 reamer, I was able to ream up to 56mm. The trial had solid fixation. At this time, a [place] 56 mm Tritanium acetabular cup was impacted into place and found to have good medialization and fixation. At this time a 36mm liner was impacted. Attention was turned to the femur. A box chisel was used out laterally. A starting awl was then placed down the canal. Starting with a size 0 broach, I was able to broach up to a size 6 , which was found to be rotationally and vertically stable. A 127-degree neck angle was then utilized with a 36+0. The patient's hip was then reduced and brought through range of motion. Leg lengths were found to be equal with no signs of instability on range of motion. At this time, the hip was dislocated. Sathish size 6 Accolade II stem was then impacted into place with 127-degree neck angle. 36mm Violoxx ceramic head was then placed and impacted into place. The patient's hip was reduced. At this time, 1 L of Betadine solution was irrigated through the hip along with 3 L of pulse irrigation with Ancef. Periarticular injection was then completed. Two #5 Ethibond sutures were used for closure of the short external rotators and capsule. Tranexamic acid was placed topically along with topical Vancomycin powder. #2 barbed suture was used for closure of the IT band and gluteal fascia, 2-0 Vicryl was used subcutaneously, and emy were used for the skin. The patient tolerated the procedure well and was sent to PACU in stable condition. MMODAL /[id number] NARAYAN
== END 2017-09-02 15:30 | disposition home or self-care (01) | DRG 470 ==
LOC: JD.MS 11:15 → JD.OB 14:04 → JD.MS 14:50
PROVIDERS: ADMIT Orthopaedic Surgery; ATTEND Orthopaedic Surgery
PROC: 0SR9019 Replacement of Right Hip Joint with Metal Synthetic Substitute, Cemented, Open Approach (ICD-10-PCS; principal; 2017-09-01)
DX: M16.11 Unilateral primary osteoarthritis, right hip (principal); E66.9 Obesity, unspecified; E78.2 Mixed hyperlipidemia; I10 Essential (primary) hypertension; K21.9 Gastro-esophageal reflux disease without esophagitis; H54.7 Unspecified visual loss; Z91.048 Other nonmedicinal substance allergy status; Z79.899 Other long term (current) drug therapy; Z87.891 Personal history of nicotine dependence
CPT/HCPCS: 01214; 36415; 51798; 73501-26-RT; 73501-RT; 80053; 85027; 86850; 86900; 86901; 94762; 97110-GP; 97116-GP; 97161-GP; 97165-GO; 97535-GO; A9270-GY; C1776; J0171; J0690; J0697; J1885; J2250; J2270; J2274; J2405; J2704; J3010; J3370; J3490; J7050; J7120

== ENCOUNTER 2024-06-21 06:30 | Day surgery (SDC) | payer BC ==
[~2024-06-21 06:30] MED LIST changes: -Acetaminophen/oxyCODONE 325-5 MG Tab PO PRN; -Bisacodyl 5 MG Tab PO PRN; -Cyclobenzaprine 10 MG Tab PO PRN; -Lidocaine 1%/Sod Bicarbonate in NS 8.4% 1 ML Syringe IV PRN; -Magnesium Hydroxide 400 MG/5 ML Susp 30 ML Cup PO PRN; -Morphine 2 MG/ML Syringe IVPUSH PRN; -Naloxone 0.4 MG/ML SDV IVPUSH PRN; -Sennosides 8.6 MG Tab PO PRN; +Sodium Chloride 0.9% 10 ML Syringe FLUSH SCH; -diphenhydrAMINE 50 MG/ML SDV IVPUSH PRN
[2024-06-21] MEDS: Pregabalin 25 MG Cap PO ONE (06:54)
[2024-06-21] MEDS: oxyCODONE ER 10 MG TAB.ER PO ONE (06:54)
[2024-06-21] MEDS ORDERED: Propofol 200 MG/20 ML SDV ONE ×4 (06:55→07:56)
[2024-06-21] MEDS ORDERED: fentaNYL 100 MCG/2 ML SDV ONE (06:56)
[2024-06-21] MEDS ORDERED: Midazolam 1 MG/ML 2 ML SDV ONE (06:56)
[2024-06-21] MEDS: Acetaminophen 325 MG Tab PO ONE (07:00)
[2024-06-21] MEDS ORDERED: Lidocaine 1% PF 2 ML SDV ONE ×2 (07:00)
[2024-06-21] MEDS ORDERED: Bupivacaine 0.25% 30 ML SDV ONE (07:00)
[2024-06-21] MEDS: Scopalamine 1mg/3day Transdermal Patch TRDERM ONE (07:05)
[2024-06-21] MEDS ORDERED: ceFAZolin 2 GM Vial ONE (07:11)
[2024-06-21] MEDS: Lactated Ringers 1,000 ML IV SCH (07:15)
[2024-06-21] MEDS: Vancomycin 1 GM SDV ONE (08:09)
[2024-06-21] MEDS: Morphine 8 MG, EPINEPHrine 0.3 MG, Cefuroxime 750 MG, Ketorolac 30 MG, Sodium Chloride ... PRN (08:09)
[2024-06-21] MEDS: Tranexamic Acid 1,000 MG/10 ML Vial ONE (08:09)
[2024-06-21] MEDS ORDERED: Ondansetron 4 MG/2 ML SDV ONE (08:35)
[2024-06-21] MEDS ORDERED: Dexamethasone 4 MG/ML 5 ML MDV ONE (08:35)
[2024-06-21] MEDS: oxyCODONE 5 MG Tab PO PRN (10:46)
== END 2024-06-21 15:10 | disposition home or self-care (01) ==
LOC: JD.SDS 06:30
PROVIDERS: ATTEND Orthopaedic Surgery
DX: M16.12 Unilateral primary osteoarthritis, left hip (principal); K21.9 Gastro-esophageal reflux disease without esophagitis; K22.70 Barrett's esophagus without dysplasia; E11.9 Type 2 diabetes mellitus without complications; E78.00 Pure hypercholesterolemia, unspecified; Z79.899 Other long term (current) drug therapy; Z79.82 Long term (current) use of aspirin; Z87.891 Personal history of nicotine dependence
CPT/HCPCS: 0055T; 27130; 73501; 97110; 97161; A9270; C1713; C1776; J0171; J0690; J0697; J1100; J1885; J2250; J2270; J2405; J2704; J3010; J3370; J3490; J7120; 01214